=== PATIENT | female | born 1960 | race Two or more races ===

== ENCOUNTER 2019-06-11 07:32 | Emergency (ER) | payer MEDICAID ==
[~2019-06-11] VITALS: Ht 165.1 cm; Wt 78.0 kg
[2019-06-11 09:00] LABS: BASOPHILS % 0.5 % (0.0-2.0); CHLORIDE 103 mEq/L (98-107); EOSINOPHILS % 0.3 % (0.0-5.0); HEMATOCRIT. 39.9 % (36.0-48.0); HEMOGLOBIN. 13.9 g/dL (12.0-16.0); INR 0.9; LYMPHOCYTES % 19.6 % (20.0-50.0); MEAN CORPUSCULAR VOLUME 92.1 fL (81.0-99.0); MEAN PLATELET VOLUME 10.1 fl (7.4-10.4); MONOCYTES % 4.7 % (2.0-8.0); NEUTROPHILS % 74.9 % (40.0-76.0); PLATELET 181 x1000/uL (130-400); PROTHROMBIN TIME 10.3 sec (9.6-11.0); RED BLOOD CELL COUNT 4.34 mill/uL (4.2-5.4); RED CELL DISTRIBUTION WIDTH 13.1 % (11.6-14.6)
[2019-06-11 09:08] LABS: CREATINE KINASE 52 IU/L (26-192)
[2019-06-11 09:42] LABS: CLARITY URINE CLOUDY (CLEAR); COLOR URINE YELLOW (YELLOW); KETONES URINE NEGATIVE (NEGATIVE); LEUKOCYTE ESTERASE URINE 2+ (NEGATIVE); NITRITE URINE NEGATIVE (NEGATIVE); OCCULT BLOOD URINE NEGATIVE (NEGATIVE); PH URINE 5.5 (4.5-8.0); PROTEIN URINE NEGATIVE (NEGATIVE); SPECIFIC GRAVITY URINE 1.013 (1.005-1.030); UROBILINOGEN URINE 0.2 E.U./dL (0.2-1.0)
[2019-06-11] MEDS ORDERED: LOSARTAN POTASSIUM 50 MG TABLET PO ONE (10:00)
[2019-06-11] MEDS ORDERED: CEPHALEXIN 250MG CAPSULE PO ONE (10:15)
[2019-06-11 10:34] VITALS: BP 146/72
== END 2019-06-11 10:42 | disposition home or self-care (01) ==
LOC: ER 07:32
DX: R00.2 Palpitations (principal); N39.0 Urinary tract infection, site not specified; I10 Essential (primary) hypertension; E11.9 Type 2 diabetes mellitus without complications; Z79.899 Other long term (current) drug therapy
CPT/HCPCS: 36415; 71045; 80053; 81003; 82550; 83880; 84484; 85025; 93005; 99285

== ENCOUNTER 2022-07-29 11:46 | Emergency (ER) | payer MEDICAID ==
[~2022-07-29] VITALS: Ht 170.2 cm; Wt 80.0 kg
[2022-07-29 14:14] LABS: EOSINOPHILS % 0.6 % (0.0-5.0); HEMATOCRIT. 40.9 % (36.0-48.0); HEMOGLOBIN. 14.1 g/dL (12.0-16.0); LYMPHOCYTES % 32.4 % (20.0-50.0); MEAN CORPUSCULAR HEMOGLOBIN 31.9 pg (28.0-32.0); MEAN CORPUSCULAR VOLUME 92.8 fL (81.0-99.0); MEAN PLATELET VOLUME 10.3 fl (7.4-10.4); MONOCYTES % 6.2 % (2.0-8.0); NEUTROPHILS % 59.8 % (40.0-76.0); PLATELET 218 x1000/uL (130-400); RED BLOOD CELL COUNT 4.41 mill/uL (4.2-5.4); RED CELL DISTRIBUTION WIDTH 13.6 % (11.6-14.6)
[2022-07-29 14:19] LABS: CHLORIDE 102 mEq/L (98-107)
[2022-07-29] MEDS ORDERED: KETOROLAC 30MG/ML VIAL IM NR (14:45)
[2022-07-29 17:55] VITALS: BP 155/70
== END 2022-07-29 18:05 | disposition home or self-care (01) ==
LOC: ER 11:53
DX: M25.512 Pain in left shoulder (principal); E11.9 Type 2 diabetes mellitus without complications; I10 Essential (primary) hypertension; Z98.890 Other specified postprocedural states
CPT/HCPCS: 36415; 71045; 80053; 82962; 84484; 85025; 93005; 96372; 99285; J1885